=== PATIENT | female | born 2000 | race Caucasian/White ===

== ENCOUNTER → 2020-03-10 | Outpatient (CLI) | payer OTHER, SELFPAY ==
[2020-05-08 01:42] LABS: HEMATOCRIT 31.4 % (36.0-47.0); HEMOGLOBIN 10.1 g/dl (12.0-15.5); MEAN CORPUSCULAR HGB CONC 32.2 g/dl (32.0-36.5); MEAN CORPUSCULAR VOLUME 90.2 fl (80.0-96.0); PLATELET COUNT, AUTOMATED 203 10^3/uL (150-450); RED BLOOD COUNT 3.48 10^6/uL (4.00-5.40); WHITE BLOOD COUNT 7.5 10^3/uL (4.0-10.0)
== END ==
LOC: M LDO 12:20
PROVIDERS: ATTEND Obstetrics & Gynecology
DX: O36.8130 Decreased fetal movements, third trimester, not applicable or unspecified (principal); W01.0XXA Fall on same level from slipping, tripping and stumbling without subsequent striking against object, initial encounter; Y92.9 Unspecified place or not applicable; Z3A.38 38 weeks gestation of pregnancy

== ENCOUNTER 2020-03-23 06:49 | Inpatient (IN) | payer OTHER, SELFPAY ==
[2020-03-23] MEDS ORDERED: FENTANYL 2MCG/ML ROPIVACAINE 0.2% IN 0.9% NACL 100ML IVBAG As Ordered ONE (09:34)
[2020-03-23] MEDS ORDERED: OXYTOCIN 30 UNITS IN 0.9% NaCl 500ML IV BAG (J2590) As Ordered ONE (14:18)
[2020-03-24] MEDS ORDERED: ACETAMINOPHEN TAB 650MG DOSE (2X325MG) As Ordered ONE (02:26)
[2020-03-24] MEDS ORDERED: IBUPROFEN 800 MG TAB As Ordered ONE (17:03)
[2020-03-25 06:00] VITALS: BP 113/72
[2020-03-26 09:30] LABS: HEMATOCRIT 31.4 % (36.0-47.0); HEMOGLOBIN 10.5 g/dl (12.0-15.5); MEAN CORPUSCULAR HEMOGLOBIN 29.3 pg (27.0-33.0); MEAN CORPUSCULAR HGB CONC 33.4 g/dl (32.0-36.5); MEAN CORPUSCULAR VOLUME 87.7 fl (80.0-96.0); PLATELET COUNT, AUTOMATED 225 10^3/uL (150-450); RED BLOOD COUNT 3.58 10^6/uL (4.00-5.40); WHITE BLOOD COUNT 14.2 10^3/uL (4.0-10.0)
--- NOTE | 2020-05-11 09:35 | HPE ---
DATE OF ADMISSION: 03/23/2020 This is a 19-year-old, 1, para 0, last menstrual period (LMP) 06/14/2019, estimated date of confinement (EDC) 03/20/2020 at 40 and 3 weeks of gestation with contractions since 0400 hours, moderate intensity, loss of fluid, no vaginal bleeding. RISK FACTORS: Body mass index (BMI) is 35.8. LABORATORIES: A positive, HIV negative, hepatitis negative, RPR negative, Rubella immune, Varicella immune, urine negative, gonorrhea and chlamydia are negative, 1-hour glucose was 99, GBS was negative. She is presently in active labor, significant contractions, moderate in intensity, symphysis fundus height is 40, vertex, occiput anterior (OA), category 1 strip. Pelvic examination was difficult, posterior, -3 station, 3 cm, soft. Her blood pressure was 119/62, respirations are 20, pulse is 96 and temperature is 98.1. Urine is 1.020, pH is 5, +3 for protein, the rest was negative. The rest of the examination is unremarkable. Normocephalic, atraumatic. Neck full range of motion. Pupils equal and reactive to light. Distal pulses are symmetric. No evidence of deep venous thrombosis (DVT), pulmonary embolus (PE), or superficial phlebitis. Chest is clear bilaterally to bases. No wheezes or rhonchi. No costovertebral angle (CVA) tenderness. Abdomen is soft, four quadrant bowel sounds are noted. Pelvic exam as mentioned. No rashes, lesions, or pruritus. No arthralgia, myalgia, no complaint of joint pain. No complaint of cough, wheeze, shortness of breath, or dyspnea on exertion. No nausea, vomiting, diarrhea, or constipation. Gynecologic (NON DESTRUCTIVE TESTING SCIENTIST) history is unremarkable. PAST MEDICAL HISTORY: Noncontributory. PAST SURGICAL HISTORY: Noncontributory. We discussed the risks and benefits of vaginal delivery including the risk of tears, lacerations to the perineum, vagina, urethra, and rectum, the possibility of repair of an episiotomy if necessary. We also discussed the risks of an emergency section for non-reassuring heart or for other significant medical or indications which will be discussed prior to consenting and moving to the operating room (OR). We also discussed use of augmentation, medications such as Pitocin, the risk of uterine tachysystole, non-reassuring heart tones, risk of section and/or the use of forceps or vacuum which has the possibility of scratches, hematomas to the head, or intracranial bleed. The patient expressed understanding, wishes to proceed. Our plan of management is to hydrate the patient, epidural if necessary, anticipate progress. ANELD
== END 2020-03-25 18:38 | disposition home or self-care (01) | DRG 807 ==
LOC: M OBS 06:49
PROC: 10E0XZZ Delivery of Products of Conception, External Approach (ICD-10-PCS; principal; 2020-03-23)
DX: O77.0 Labor and delivery complicated by meconium in amniotic fluid (principal); Z37.0 Single live birth; O48.0 Post-term pregnancy; Z3A.40 40 weeks gestation of pregnancy